=== PATIENT | female | born 1960 | race Caucasian/White ===

== ENCOUNTER 2025-01-06 12:54 | Emergency (ER) | payer MEDICARE ==
--- NOTE | 2025-01-06 13:10 | ERPHSYRPT ---
- History of Present Illness Time Seen by Provider: 01/06/25 13:07 Source: patient Exam Limitations: no limitations Physician History: 64-year-old female presents to our ED for evaluation of pain to her left shoulder that has been present for 1 year. Patient states that she injured it lifting a heavy box. The pain has been intermittent over the past year. Patient has not voiced this shoulder discomfort to her family physician. Patient states "I thought I had better get it checked out". No other complaints. No extremity numbness tingling or weakness. No blunt trauma. Symptoms are mild to moderate in intensity. Pain worse with end range abduction and extension. Common plane motions reproduce pain as well. Patient voices no other complaints or concerns at this time. Patient declined pain medication. She sees a pain doctor. Patient took a [place] pill prior to arrival Portions of this note were created with voice recognition technology. There may be grammatical, spelling, punctuation or sound alike errors Timing/Duration: other (1 year) Modifying Factors: Improves With: movement Associated Symptoms: denies symptoms Allergies/Adverse Reactions: tramadol Allergy (Verified 01/06/25 13:07) Home Medications: Unobtainable 01/06/25 [History] - Review of Systems Constitutional: No Symptoms, No Fever, No Chills Eyes: No Symptoms Ears, Nose, & Throat: No Symptoms Respiratory: No Symptoms, No Cough, No Dyspnea Cardiac: No Chest Pain, No Edema, No Syncope Abdominal/Gastrointestinal: No Symptoms, No Abdominal Pain, No Nausea, No Vomiting, No Diarrhea Genitourinary Symptoms: No Symptoms, No Dysuria Musculoskeletal: No Symptoms, No Back Pain, No Neck Pain Skin: No Symptoms, No Rash Neurological: No Symptoms, No Dizziness, No Focal Weakness, No Sensory Changes Psychological: No Symptoms Endocrine: No Symptoms Hematologic/Lymphatic: No Symptoms Immunological/Allergic: No Symptoms All Other Systems: Reviewed and Negative - Nursing Vital Signs Nursing Vital Signs: Initial Vital Signs Temperature 97.2 F 01/06/25 13:17 Pulse Rate 70 01/06/25 13:17 Respiratory Rate 18 01/06/25 13:17 Blood Pressure 137/82 01/06/25 13:17 O2 Sat by Pulse Oximetry 98 01/06/25 13:17 Pain Scale Pain Intensity 2 - Physical Exam General Appearance: no apparent distress, alert Eye Exam: PERRL/EOMI, eyes nml inspection Ears, Nose, Throat Exam: normal ENT inspection, pharynx normal, moist mucous membranes Neck Exam: normal inspection, full range of motion Respiratory Exam: normal breath sounds, lungs clear, airway intact, No respiratory distress Cardiovascular Exam: regular rate/rhythm, normal heart sounds, normal peripheral pulses Gastrointestinal/Abdomen Exam: soft, normal bowel sounds, No tenderness, No mass Back Exam: normal inspection, normal range of motion, No CVA tenderness, No vertebral tenderness Extremity Exam: normal inspection, normal range of motion, pelvis stable, other (Tenderness palpation left shoulder anterior lateral deltoid. The involved extremities neurovascular intact distally compartments are soft cap refill less than 2 seconds) Neurologic Exam: alert, oriented x 3, cooperative, normal mood/affect, sensation nml, No motor deficits Skin Exam: normal color, warm, dry, No rash Lymphatic Exam: No adenopathy SpO2 Interpretation: normal O2 Delivery: Room Air - Course Nursing assessment & vital signs reviewed: Yes - Radiology Exams Shoulder X-ray Interpretation: Teleradiologist Report (Chronic findings left shoulder arthritis no fracture or dislocation) Ordered Tests: Active Orders 24 hr Category Date Time Status SHOULDER Stat Exams 01/06/25 13:06 Completed - Progress Progress: improved Progress Note: 64-year-old female with chronic shoulder pain. X-ray negative for acute pathology. Patient given a left upper extremity sling and a referral to the orthopedic clinic. Patient declined pain medication as she took a [place] pill prior to arrival. The involved extremity is neurovascular tact distally compartments are soft cap refill less than 2 seconds. No indication for further workup will discharge home. Patient agrees to follow-up in the orthopedic clinic tomorrow as planned. Patient voices no other complaints or concerns at this time. Portions of this note were created with voice recognition technology. There may be grammatical, spelling, punctuation or sound alike errors Complexity of problem addressed is moderate acute complicated. No critical care time. Complexity of data reviewed and analyzed low. Test ordered test reviewed results analyzed and correlated clinically with history and physical exam. Risk of complication and or risk of morbidity/mortality of patient management is low. Vital stable. Time spent to discharge patient is approximately 15 minutes. Plan of care established for shared decision making. No social determinants of health present to impede follow-up. Portions of this note were created with voice recognition technology. There may be grammatical, spelling, punctuation or sound alike errors 01/06/25 13:14 Counseled pt/family regarding: diagnosis, need for follow-up, rad results - Departure Departure Disposition: Home Clinical Impression: Shoulder pain, Shoulder arthritis Condition: Stable Critical Care Time: No Referrals: MARTÍNEZ HAMM, SOFTWARE ENGINEERING ASSOCIATE MANAGER [Primary Care Provider, UNKNOWN] - Follow up/PCP as directed Additional Instructions: Discharge/Care Plan ASHLEY CASTAÑEDA was seen on 01/06/25 in the Emergency Room. The patient was counseled regarding Diagnosis,Lab results, Imaging studies, need for follow up and when to return to the Emergency Room. Prescriptions given: Discharge Note I have spoken with the patient and/or caregivers. I have explained the patient's condition, diagnosis and treatment plan based on the information available to me at this time. I have answered the patient's and/or caregiver's questions and addressed any concerns. The patient and/or caregivers have as good understanding of the patient's diagnosis, condition and treatment plan as can be expected at this point. The vital signs have been stable. The patient's condition is stable and appropriate for discharge from the emergency department. The patient will pursue further outpatient evaluation with the primary care physician or other designated or consulting physician as outlined in the discharge instructions. The patient and/or caregivers are agreeable to this plan of care and follow-up instructions have been explained in detail. The patient and/or caregivers have received these instruction. The patient/and or caregivers are aware that any significant change in condition or worsening of symptoms should prompt an immediate return to this or the closest emergency department or call 911. Outpatient Orders: Ortho Referral Time Frame: 1 Day, Facility: [facility], Location: [facility]
[2025-01-06 13:19] VITALS: BP 137/82; PULSE 70; RESP 18; TEMP 97.2; O2SAT 98
--- NOTE | 2025-01-06 13:33 | XRAY ---
Indication: Pain. Comparison: None 3 view left shoulder demonstrates osteopenia, mild AC degenerative arthropathy, and minimal/mild multilevel degenerative spondylosis. No other bony, articular, or soft tissue abnormalities.
== END 2025-01-06 14:09 | disposition home or self-care (01) ==
LOC: ED 12:54
DX: M19.012 Primary osteoarthritis, left shoulder (principal); M25.512 Pain in left shoulder; Z59.819 Housing instability, housed unspecified
CPT/HCPCS: 73030; 93005; 99283; 99284